=== PATIENT | male | born 1970 | race Caucasian/White ===

== ENCOUNTER 2020-03-13 19:19 | Emergency (ER) | payer OTHER ==
[~2020-03-13] VITALS: Ht 162.6 cm; Wt 82.0 kg
[2020-03-13] MEDS ORDERED: BUPR-121 PO (19:33)
[2020-03-13] MEDS ORDERED: IBUPROFEN 800 MG TABLET PO ONE (20:15)
[2020-03-13] MEDS ORDERED: AMOX TR/POT CLAV 875 MG/125 MG TABLET PO ONE (21:00)
[2020-03-13 21:08] VITALS: BP 133/75
== END 2020-03-13 21:45 | disposition home or self-care (01) ==
LOC: EMS 19:21
DX: S86.911A Strain of unspecified muscle(s) and tendon(s) at lower leg level, right leg, initial encounter (principal); H66.92 Otitis media, unspecified, left ear; F32.9 Major depressive disorder, single episode, unspecified; X58.XXXA Exposure to other specified factors, initial encounter; Y93.89 Activity, other specified; Y92.89 Other specified places as the place of occurrence of the external cause; Y99.8 Other external cause status
CPT/HCPCS: 29530